=== PATIENT | female | born 1995 | race African-American/Black ===

== ENCOUNTER 2019-10-12 10:57 | Inpatient (IN) | payer MEDICAID ==
[~2019-10-12] VITALS: Ht 165.1 cm; Wt 65.8 kg
[2019-10-12] MEDS ORDERED: DEXT 5%/LR + PITOCIN 20UNITS/L 1,000 ML IV SCH ×2 (12:52→18:58)
[2019-10-12] MEDS ORDERED: METHYLERGONOVINE MALEATE 0.2 MG/ML IM PRN (13:00)
[2019-10-12] MEDS ORDERED: NALOXONE HCL 0.4 MG/ML 1ML VIAL IM PRN (13:00)
[2019-10-12] MEDS ORDERED: CARBOPROST TROMETHAMINE 250 MCG/ML AMPUL IM PRN (13:00)
[2019-10-12] MEDS: LACTATED RINGERS 1,000 ML IV SCH ×2 (14:11→15:09)
[2019-10-12 14:16] LABS: BASOPHILS % 0.3 % (0.0-2.0); EOSINOPHILS % 0.3 % (0.0-5.0); HEMATOCRIT. 37.9 % (36.0-48.0); HEMOGLOBIN. 12.5 g/dL (12.0-16.0); LYMPHOCYTES % 31.1 % (20.0-50.0); MEAN CORPUSCULAR HEMOGLOBIN 27.1 pg (28.0-32.0); MEAN CORPUSCULAR VOLUME 82.5 fL (81.0-99.0); MEAN PLATELET VOLUME 9.7 fl (7.4-10.4); MONOCYTES % 8.3 % (2.0-8.0); PLATELET 132 x1000/uL (130-400); RED BLOOD CELL COUNT 4.59 mill/uL (4.2-5.4)
[2019-10-12 14:25] LABS: INR 0.9; PARTIAL THROMBOPLASTIN TIME 27.8 sec (23.4-31.0)
[2019-10-12 14:27] LABS: CLARITY URINE CLEAR (CLEAR); COLOR URINE YELLOW (YELLOW); KETONES URINE NEGATIVE (NEGATIVE); LEUKOCYTE ESTERASE URINE TRACE (NEGATIVE); NITRITE URINE NEGATIVE (NEGATIVE); OCCULT BLOOD URINE NEGATIVE (NEGATIVE); PROTEIN URINE NEGATIVE (NEGATIVE); SPECIFIC GRAVITY URINE 1.004 (1.005-1.030); UROBILINOGEN URINE 0.2 E.U./dL (0.2-1.0)
[2019-10-12 14:46] LABS: *AMPHETAMINES SCREEN URINE NEGATIVE (NEGATIVE); *BARBITURATES SCREEN URINE NEGATIVE (NEGATIVE); *BENZODIAZEPINES SCREEN URINE NEGATIVE (NEGATIVE); *COCAINE SCREEN URINE NEGATIVE (NEGATIVE); METHADONE URINE SCREEN NEGATIVE (NEGATIVE)
[2019-10-12 14:47] LABS: CANNABINOID URINE SCREEN NEGATIVE (NEGATIVE); OPIATES URINE SCREEN NEGATIVE (NEGATIVE); PHENCYCLIDINE URINE SCREEN NEGATIVE (NEGATIVE)
[2019-10-12 14:54] LABS: HEPATITIS B SURFACE ANTIGEN NEGATIVE
[2019-10-12] MEDS ORDERED: SODIUM CHLORIDE 0.9% 10ML VIAL ONE ×2 (15:43→15:44)
[2019-10-12] MEDS ORDERED: EPHEDRINE SULFATE 50MG/ML VIAL ONE (15:43)
[2019-10-12] MEDS ORDERED: ONDANSETRON HCL 4MG/2ML INJ ONE (15:43)
[2019-10-12] MEDS ORDERED: CEFAZOLIN SODIUM 1000MG/VIAL ONE (15:43)
[2019-10-12] MEDS ORDERED: METOCLOPRAMIDE HCL 10MG/2ML VIAL ONE (15:43)
[2019-10-12] MEDS ORDERED: OXYTOCIN 10 UNITS/ML 1ML ONE (15:46)
[2019-10-12] MEDS ORDERED: MORPHINE SULFATE/PF 1MG/ML 10ML AMP ONE (15:49)
[2019-10-12] MEDS ORDERED: FENTANYL CITRATE/PF 50MCG/ML 2ML VIAL ONE (15:49)
[2019-10-12] MEDS ORDERED: CITRIC ACID/SODIUM CITRATE SOLN 30ML UDC PO ONE (17:15)
[2019-10-12] MEDS ORDERED: CITRIC ACID/SODIUM CITRATE SOLN 30ML UDC PO NR (17:15)
[2019-10-12] MEDS ORDERED: IBUPROFEN 400MG TABLET PO PRN (19:00)
[2019-10-12] MEDS ORDERED: ONDANSETRON HCL 4MG/2ML INJ IV PRN (19:00)
[2019-10-12] MEDS ORDERED: HYDROMORPHONE HCL/PF 2MG/ML CPJ IV PRN (19:00)
[2019-10-12] MEDS ORDERED: MEPERIDINE HCL/PF 25MG/ML CPJ IV PRN (19:00)
[2019-10-12] MEDS ORDERED: BISACODYL 10MG SUPP PR PRN (19:00)
[2019-10-12] MEDS ORDERED: DIPHENHYDRAMINE 50MG/ML VIAL IV PRN (19:00)
[2019-10-12] MEDS ORDERED: KETOROLAC 30MG/ML VIAL IV PRN (19:00)
[2019-10-12] MEDS ORDERED: METOCLOPRAMIDE HCL 10MG/2ML VIAL IV PRN (19:00)
[2019-10-12 20:15] VITALS: BP 118/69
[2019-10-12 20:45] VITALS: BP 128/75
[2019-10-12 21:30] VITALS: BP 123/70
[2019-10-13] MEDS ORDERED: KETOROLAC 30MG/ML VIAL IV SCH
[2019-10-13 00:01] VITALS: BP 124/51
[2019-10-13 03:30] VITALS: BP 129/66
[2019-10-13 07:56] VITALS: BP 128/72
[2019-10-13 08:00] LABS: BASOPHILS % 0.2 % (0.0-2.0); EOSINOPHILS % 0.1 % (0.0-5.0); HEMATOCRIT. 35.5 % (36.0-48.0); HEMOGLOBIN. 11.7 g/dL (12.0-16.0); LYMPHOCYTES % 11.5 % (20.0-50.0); MEAN CORPUSCULAR HEMOGLOBIN 27.6 pg (28.0-32.0); MEAN CORPUSCULAR VOLUME 83.8 fL (81.0-99.0); MEAN PLATELET VOLUME 9.3 fl (7.4-10.4); MONOCYTES % 9.8 % (2.0-8.0); NEUTROPHILS % 78.4 % (40.0-76.0); PLATELET 114 x1000/uL (130-400); RED BLOOD CELL COUNT 4.23 mill/uL (4.2-5.4); RED CELL DISTRIBUTION WIDTH 16.9 % (11.6-14.6)
[2019-10-13] MEDS: IBUPROFEN 800MG TABLET PO PRN ×2 (09:22→18:18)
[2019-10-13 16:10] VITALS: BP 121/78
[2019-10-13 20:00] VITALS: BP 112/79
[2019-10-14] VITALS: BP 114/80
[2019-10-14] MEDS: IBUPROFEN 800MG TABLET PO PRN ×3 (03:19→18:50)
[2019-10-14 04:00] VITALS: BP 122/80
[2019-10-14 07:45] VITALS: BP 119/71
[2019-10-14 16:18] VITALS: BP 124/82
[2019-10-14 20:00] VITALS: BP 127/80
[2019-10-15] VITALS: BP 123/72
[2019-10-15] MEDS ORDERED: IBUP-2030 PO (02:13)
[2019-10-15] MEDS: IBUPROFEN 800MG TABLET PO PRN ×2 (06:35→09:31)
[2019-10-15 09:20] VITALS: BP 120/85
== END 2019-10-15 12:10 | disposition home or self-care (01) | DRG 540 ==
LOC: OBSVTOIN 10:57 → 8 EST LDRP 10:57 → 8EST 20:00
PROVIDERS: ADMIT Obstetrics & Gynecology; ATTEND Obstetrics & Gynecology
PROC: 10D00Z1 Extraction of Products of Conception, Low, Open Approach (ICD-10-PCS; principal; 2019-10-12)
DX: O34.211 Maternal care for low transverse scar from previous cesarean delivery (principal); D69.6 Thrombocytopenia, unspecified; O99.824 Streptococcus B carrier state complicating childbirth; O72.3 Postpartum coagulation defects; Z37.0 Single live birth; Z3A.38 38 weeks gestation of pregnancy
CPT/HCPCS: 36415; 80305; 81003; 85025; 86592; 86703; 86762; 86850; 86900; 86920; 87340; 88307; 99281; G0378; J0690; J1885; J2274; J2405; J2590; J2765; J3010; J3490; J7120

== ENCOUNTER 2022-08-09 06:08 | Day surgery (SDC) | payer MEDICAID ==
[~2022-08-09] VITALS: Ht 157.5 cm; Wt 60.0 kg
[2022-08-09] VITALS (10 sets, daily range): BP systolic 102–110; BP diastolic 65–73
[~2022-08-09 06:08] MED LIST: IBUP-2030 PO
[2022-08-09 09:27] LABS: BASOPHILS % 0.2 % (0.0-2.0); HEMATOCRIT. 29.8 % (36.0-48.0); HEMOGLOBIN. 9.9 g/dL (12.0-16.0); LYMPHOCYTES % 14.1 % (20.0-50.0); MEAN CORPUSCULAR VOLUME 81.5 fL (81.0-99.0); MONOCYTES % 5.7 % (2.0-8.0); PLATELET 257 x1000/uL (130-400); RED BLOOD CELL COUNT 3.66 mill/uL (4.2-5.4); RED CELL DISTRIBUTION WIDTH 13.3 % (11.6-14.6)
[2022-08-09 09:35] LABS: INR 1.1; PROTHROMBIN TIME 11.4 sec (9.6-11.0)
[2022-08-09 09:39] LABS: HCG SCREEN POSITIVE
[2022-08-09 09:41] LABS: CHLORIDE 104 mEq/L (98-107)
[2022-08-09 10:05] LABS: B-HCG QUANTITATIVE 24616 mIU/mL (<3)
[2022-08-09] MEDS ORDERED: METHYLERGONOVINE MALEATE 0.2 MG/ML ONE (12:46)
[2022-08-09] MEDS ORDERED: PROPOFOL 200MG/20ML VIAL IV ONE ×2 (12:49→15:47)
[2022-08-09] MEDS ORDERED: LIDOCAINE HCL 1% 10 MG/ML 10ML VIAL ONE ×3 (12:49→15:47)
[2022-08-09] MEDS ORDERED: SUCCINYLCHOLINE CHLORIDE 200MG/10ML IV ONE (12:50)
[2022-08-09] MEDS ORDERED: MIDAZOLAM HCL 2 MG/2 ML VIAL ONE ×3 (12:50→15:47)
[2022-08-09] MEDS ORDERED: FENTANYL CITRATE/PF 50MCG/ML 2ML VIAL ONE ×3 (12:50→15:47)
[2022-08-09] MEDS ORDERED: TRANEXAMIC ACID 1,000 MG in SODIUM CHLORIDE 0.9% 100 ML IV NR ×2 (13:30→14:00)
[2022-08-09] MEDS ORDERED: CEFAZOLIN 1000MG PREMIX 50 ML IV ONE (13:51)
[2022-08-09] MEDS ORDERED: IOHEXOL-300 100 ML BOTTLE ONE (13:55)
[2022-08-09] MEDS ORDERED: CEFAZOLIN 1000MG PREMIX 50 ML IV NR (14:15)
[2022-08-09] MEDS ORDERED: IOHEXOL-300 50 ML BOTTLE IV ONE (14:50)
[2022-08-09] MEDS ORDERED: FENTANYL CITRATE/PF 50MCG/ML 2ML VIAL IV ONE (15:00)
[2022-08-09] MEDS ORDERED: OXYTOCIN 10 UNITS/ML 1ML ONE ×2 (16:04→16:05)
[2022-08-09] MEDS ORDERED: IBUPROFEN 800MG TABLET PO NR (16:45)
== END 2022-08-09 19:20 | disposition home or self-care (01) ==
LOC: ER 06:08 → MICUSO 12:30 → UNDOADMIN 12:30 → OR 12:30 → ER 08-10 08:49
PROVIDERS: ATTEND Obstetrics & Gynecology
DX: N93.9 Abnormal uterine and vaginal bleeding, unspecified (principal); O02.0 Blighted ovum and nonhydatidiform mole; Z79.899 Other long term (current) drug therapy; Z98.890 Other specified postprocedural states; Z20.822 Contact with and (suspected) exposure to COVID-19
CPT/HCPCS: 36415; 59820; 71045; 75774; 75898; 76830; 76856; 80053; 84702; 84703; 85025; 85610; 86850; 86900; 86901; 86920; 87426; 96365; 99291; C1760; C1766; C1769; C9803; J0330; J0690; J1644; J2210; J2250; J2704; J3010; J3490; J7050; Q9967; 99152; 99153; A4315; G0500

== ENCOUNTER 2022-09-06 10:45 | Emergency (ER) | payer MEDICAID ==
[~2022-09-06] VITALS: Ht 165.1 cm; Wt 68.0 kg
[2022-09-06 16:40] LABS: BASOPHILS % 0.4 % (0.0-2.0); EOSINOPHILS % 0.5 % (0.0-5.0); HEMOGLOBIN. 7.7 g/dL (12.0-16.0); LYMPHOCYTES % 17.1 % (20.0-50.0); MEAN CORPUSCULAR HEMOGLOBIN 23.5 pg (28.0-32.0); MEAN CORPUSCULAR VOLUME 73.3 fL (81.0-99.0); MEAN PLATELET VOLUME 8.1 fl (7.4-10.4); MONOCYTES % 8.2 % (2.0-8.0); NEUTROPHILS % 73.8 % (40.0-76.0); PLATELET 338 x1000/uL (130-400); RED BLOOD CELL COUNT 3.27 mill/uL (4.2-5.4); RED CELL DISTRIBUTION WIDTH 19.1 % (11.6-14.6)
[2022-09-06 16:48] LABS: INR 1.1; PARTIAL THROMBOPLASTIN TIME 28.3 sec (23.4-31.0); PROTHROMBIN TIME 11.3 sec (9.6-11.0)
[2022-09-06 16:52] LABS: CHLORIDE 105 mEq/L (98-107)
[2022-09-06 17:47] LABS: HCG SCREEN POSITIVE
[2022-09-06 18:17] LABS: CLARITY URINE CLEAR (CLEAR); COLOR URINE YELLOW (YELLOW); KETONES URINE 1+ (NEGATIVE); LEUKOCYTE ESTERASE URINE NEGATIVE (NEGATIVE); NITRITE URINE NEGATIVE (NEGATIVE); OCCULT BLOOD URINE 2+ (NEGATIVE); PH URINE 5.5 (4.5-8.0); PROTEIN URINE TRACE (NEGATIVE); SPECIFIC GRAVITY URINE 1.025 (1.005-1.030)
[2022-09-06 18:39] LABS: B-HCG QUANTITATIVE 8 mIU/mL (<3)
[2022-09-06] MEDS ORDERED: KETOROLAC 15MG/ML VIAL IV ONE (19:00)
[2022-09-06] MEDS ORDERED: METOCLOPRAMIDE HCL 10MG/2ML VIAL IV ONE (19:00)
[2022-09-06] MEDS ORDERED: SODIUM CHLORIDE 0.9% 1,000 ML IV ONE (19:30)
[2022-09-06] MEDS ORDERED: DIPHENHYDRAMINE 50MG/ML VIAL IV ONE (19:45)
[2022-09-06] MEDS: METOCLOPRAMIDE HCL 10MG/2ML VIAL IV NR ×3 (20:50→22:35)
[2022-09-06] MEDS: KETOROLAC 15MG/ML VIAL IV NR ×3 (20:57→22:36)
[2022-09-06 23:59] VITALS: BP 113/71
[2022-09-07] MEDS ORDERED: IOHEXOL-350 100 ML BOTTLE ONE (06:00)
== END 2022-09-07 00:03 | disposition home or self-care (01) ==
LOC: ER 10:45
DX: G43.909 Migraine, unspecified, not intractable, without status migrainosus (principal); R07.89 Other chest pain; D64.9 Anemia, unspecified; Z98.890 Other specified postprocedural states
CPT/HCPCS: 36415; 70450; 71045; 71275; 74174; 76830; 76856; 80053; 81003; 83615; 83735; 84443; 84484; 84702; 84703; 85025; 85379; 85610; 85730; 93005; 96361; 96374; 96375; 99285; J1200; J1885; J2765; J7030; Q9967; Z7610